=== PATIENT | female | born 1960 | race Caucasian/White ===

== ENCOUNTER → 2016-10-07 | Outpatient (CLI) | payer OTHER | LOC: LAB 11:50 | DX: H31 Other disorders of choroid (principal) | CPT/HCPCS: 36415; 80048; 82565 ==

== ENCOUNTER → 2016-10-09 | Outpatient (CLI) | payer OTHER | LOC: KOH-I 09-27 10:00 | DX: H47.20 Unspecified optic atrophy (principal); G93.89 Other specified disorders of brain; G31.9 Degenerative disease of nervous system, unspecified; Q04.0 Congenital malformations of corpus callosum; J34.89 Other specified disorders of nose and nasal sinuses | CPT/HCPCS: 70553; A9577 ==

== ENCOUNTER 2020-07-24 10:23 | Emergency (ER) | payer OTHER | END 2020-07-24 12:17 | disposition home or self-care (01) | LOC: ER1 10:23 | DX: M79.662 Pain in left lower leg (principal); Z86.73 Personal history of transient ischemic attack (TIA), and cerebral infarction without residual deficits | CPT/HCPCS: 93971; 99283 ==

== ENCOUNTER → 2020-07-28 | Outpatient (CLI) | payer OTHER | LOC: KOH-I 14:14 | DX: M25.562 Pain in left knee (principal); M17.12 Unilateral primary osteoarthritis, left knee | CPT/HCPCS: 73564 ==

== ENCOUNTER → 2020-12-21 | Outpatient (CLI) | payer OTHER | LOC: RAD 14:50 | DX: M79.672 Pain in left foot (principal); R60.0 Localized edema | CPT/HCPCS: 73630 ==

== ENCOUNTER → 2020-12-28 | Outpatient (CLI) | payer OTHER | LOC: KOH-I 15:11 | DX: R22.43 Localized swelling, mass and lump, lower limb, bilateral (principal) | CPT/HCPCS: 93970 ==